=== PATIENT | female | born 1995 | race Caucasian/White ===

== ENCOUNTER 2017-05-15 04:08 | Emergency (ER) | payer MEDICAID ==
[2017-05-15 04:08] VITALS: BMI 36.6
--- NOTE | 2017-05-15 04:20 | ED PDOC ---
Arrival/HPI - General Chief Complaint: Chest Pain Time Seen by Provider: 05/15/17 04:16 Historian: Patient - History of Present Illness Narrative History of Present Illness (Text): 05/15/17 04:17 Karin Rosales is a 21 year old female who presents to the emergency department complaining of sudden onset pleuritic chest pain which began an hour prior to arrival. States that pain radiates to the back and is worsened with deep inspirations. Describes pain as a pressure sensation. Denies any shortness of breath. Denies any fever, chills, headache, dizziness, abdominal pain, nausea, vomiting, diarrhea, or any other complaints at this time. Time/Duration: Other (3 am today morning ) Symptom Onset: Sudden Activities at Onset: Light Context: Home Past Medical History - Provider Review Nursing Documentation Reviewed: Yes - Infectious Disease Hx of Infectious Diseases: None - Tetanus Immunization Tetanus Immunization: Unknown - Reproductive Menopause: No - Past Medical History Past Medical History: No Previous - Psychiatric Hx Psychophysiologic Disorder: No Hx Depression: No Hx Emotional Abuse: No Hx Physical Abuse: No Hx Substance Use: No - Past Surgical History Past Surgical History: No Previous - Anesthesia Hx Anesthesia: No - Suicidal Assessment Feels Threatened In Home Enviroment: No Family/Social History - Physician Review Nursing Documentation Reviewed: Yes Family/Social History: No Known Family HX Smoking Status: Never Smoked Hx Alcohol Use: No Hx Substance Use: No Hx Substance Use Treatment: No Allergies/Home Meds Allergies/Adverse Reactions: Allergies No Known Allergies Allergy (Verified 07/17/13 20:40) Physical Exam - Physical Exam Narrative Physical Exam (Text): Constitutional: Normal. absent: Fatigue, Weight Change, Fevers Eyes: Normal ENT: Normal Respiratory: Normal absent: SOB, Cough, Sputum Cardiovascular: Present: Chest pain absent:Palpitations, Syncope Gastrointestinal:Normal absent: Abdominal pain, Diarrhea, Nausea, Vomiting Genitourinary: Normal. absent: Dysuria, Frequency, Hematuria Musculoskeletal: Present: Back pain absent: Arthralgias, Neck Pain Skin: Normal Neurological: Normal absent: Focal Weakness Endocrine: Normal Hemo/Lymphatic: Normal Psychiatric: Normal - Physical exam Patient appears age appropriate, speaking full sentences without difficulty. - Systems Exam Head: Present: Atraumatic, Normocephalic Pupils: Present: PERRL Extraocular Muscles: Present: EOMI Conjunctiva: Present: Normal Mouth: Present: Moist Mucous Membranes Neck: Present: Normal Range of Motion. No: MIDLINE TENDERNESS, Paraspinal Tenderness Respiratory/Chest: Present: Clear to Auscultation, Good Air Exchange. No: Respiratory Distress, Accessory Muscle Use, Tachypnic Cardiovascular: Present: Regular Rate and Rhythm, Normal S1, S2, Peripheral Pulses Present. No: Murmurs Abdomen: Present: Normal Bowel Sounds, No: Tenderness, Peritoneal Signs, Rebound, Guarding, Distention Back: Present: Normal Inspection. No: Midline Tenderness, Paraspinal Tenderness Upper Extremity: Present: Normal Inspection. No: Cyanosis, Edema Lower Extremity: Present: Normal Inspection. No: Edema Neurological: Present: GCS=15, Speech Normal, cranial nerves II through XII fully intact with no cerebellar abnormality, neuro-sensory fully intact. No focal neurological deficits. Skin: Present: Warm, Dry, Normal Color. No: Rashes Lymphatic: Present: OX3, NI, NC Psychiatric: Present: Alert, Oriented x 3, Normal Insight, Normal Concentration Vital Signs Reviewed: Yes Vital Signs Temp Pulse Resp BP Pulse Ox 05/15/17 05:51 83 18 135/67 100 05/15/17 04:58 97.8 F 87 20 150/81 100 Temperature: Afebrile Blood Pressure: Normal Pulse: Regular Respiratory Rate: Normal Appearance: Positive for: Well-Appearing, Non-Toxic, Comfortable Pain Distress: None Mental Status: Positive for: Alert and Oriented X 3 Medical Decision Making ED Course and Treatment: 05/15/17 04:21 Impression: A 21 year old female who presents to the ed complaining of pleuritic chest pain radiating to the back. Differential Diagnosis included but are not limited to: PE vs. ACS vs. atypical chest pain Plan: - Labs, cardiac enzymes -- EKG -- CXR -- Toradol -- POC urine -- Reassess and disposition Progress Notes: 05/15/17 04:24 EKG interpreted by me: NSR @ [address] segment elevations. Normal interval. 05/15/17 05:55 Chest xray interpreted by ED physician shows no pneumothorax, no cardiomegaly, no infiltrates 05/15/17 06:10 Patient's HEART score low Patient's 1 set of troponins are negative Patient currently denies any complaints and states she feels well, no chest pain , no shortness of breath. Had an extensive discussion with patient about the limitations of emergency department workup. Pt was informed that although she is not having a heart attack, there is still a need for further cardiac workup which may include but not be limited to additional lab testing, echo, stress test, and/or a catheterezation. Pt was advised to stay in the hospital for more lab testing cardiology consultation. Pt however states that she feels well, her pain fully resolved she and wants to pursue further testing outpatient. Pt states she feels comfortable going home at this time and denies any complaints. Pt informed of risks and states she fully understands. Also aware to follow up with a sales closer and her PMD (Sudeep) within 48hrs. Pt states she understands to return to the ER right away for new or worsening symptoms or for inability to f/u with PMD or specialist as instructed. Patient states that she fully agrees with and understands discharge instructions. States that she agrees with the plan and disposition. Verbalized and repeated discharge instructions and plan. I have given the patient opportunity to ask any additional questions. - Lab Interpretations Lab Results: 05/15/17 04:20 05/15/17 04:20 Lab Results 05/15/17 04:20: PT 11.0, INR 1.02, APTT 28.9, D-Dimer, Quantitative 0.34 05/15/17 04:20: WBC 7.3, RBC 4.81, Hgb 10.1 L, Hct 31.3 L, MCV 65.1 L, MCH 21.0 L, MCHC 32.3, RDW 18.0 H, Plt Count 316, Gran % 44.1 L, Lymph % (Auto) 39.0 H, [place] % (Auto) 11.5 H, Eos % (Auto) 4.9, Baso % (Auto) 0.5, Gran # 3.20, Lymph # 2.8, [place]y # 0.8 H, Eos # 0.4, Baso # 0.04 05/15/17 04:20: Sodium 137, Potassium 3.4 L, Chloride 101, Carbon Dioxide 27, Anion Gap 12, BUN 11, Creatinine 0.6, Est GFR ( Amer) > 60, Est GFR (Non- Af Amer) > 60, Random Glucose 122 H, Calcium 8.4, Total Bilirubin 0.4, AST 32, ALT 31, Alkaline Phosphatase 74, Lactate Dehydrogenase 462, Total Creatine Kinase 90, Troponin I < 0.01, Total Protein 7.4, Albumin 3.8, Globulin 3.6, Albumin/Globulin Ratio 1.1 - RAD Interpretation Radiology Orders: 05/15/17 04:18 CHEST PORTABLE [RAD] Stat - Medication Orders Current Medication Orders: Discontinued Medications Ketorolac Tromethamine (Toradol) 30 mg IVP STAT STA Stop: 05/15/17 04:19 Last Admin: 05/15/17 04:39 Dose: 30 mg - Scribe Statement The provider has reviewed the documentation as recorded by the Purvi Aguilar Provider Attestation: All medical record entries made by the Garryibcarmel were at my direction and personally dictated by me. I have reviewed the chart and agree that the record accurately reflects my personal performance of the history, physical exam, medical decision making, and the department course for this patient. I have also personally directed, reviewed, and agree with the discharge instructions and disposition. Disposition/Present on Arrival - Present on Arrival Any Indicators Present on Arrival: No History of DVT/PE: No History of Uncontrolled Diabetes: No Urinary Catheter: No History of Decub. Ulcer: No History Surgical Site Infection Following: None - Disposition Have Diagnosis and Disposition been Completed?: Yes Diagnosis: Chest pain Disposition: HOME/ ROUTINE Disposition Time: 06:13 Patient Plan: Discharge Condition: GOOD Discharge Instructions (ExitCare): Chest Pain (ED) Additional Instructions: PLEASE RETURN TO THE EMERGENCY DEPARTMENT FOR NEW OR WORSENING SYMPTOMS. RETURN RIGHT AWAY IF YOU CANNOT FOLLOW UP WITH YOUR PRIMARY CARE DOCTOR, CLINIC, OR SPECIALIST IN 1-2 DAYS. Referrals: Sean Gomez MD [Primary Care Provider] - Follow up with primary Ashu Ring MD [Staff Provider] - Follow up with primary Desmond Singletary MD [Staff Provider] - Follow up with primary Forms: [employer] (Ecuadorean), WORK NOTE
[2017-05-15 04:41] LABS: BASO # 0.04 K/mm3 (0.0-2.0); BASO % 0.5 % (0.0-3.0); EOS # 0.4 (0.0-0.7); EOS % 4.9 % (1.5-5.0); GRAN % 44.1 % (50.0-68.0); HEMOGLOBIN 10.1 g/dL (12.0-16.0); LYMPH # 2.8 (1.2-3.4); MEAN CELL VOLUME 65.1 fl (80.0-105.0); MEAN CORPUSCULAR HGB CONC 32.3 g/dl (31.0-37.0); MONO # 0.8 (0.1-0.6); MONO % 11.5 % (1.0-6.0); PLATELET COUNT 316 10^3/uL (120.0-450.0); RBC 4.81 10^6/uL (3.5-6.1); WHITE BLOOD COUNT 7.3 10^3/ul (4.5-11.0)
[2017-05-15 04:45] LABS: ALB/GLOB RATIO 1.1 (1.1-1.8); ALBUMIN 3.8 g/dL (3.0-4.8); ALT/SGPT 31 U/L (7-56); AST/SGOT 32 U/L (15-39); BLOOD UREA NITROGEN 11 mg/dL (7-21); CALCIUM 8.4 mg/dL (8.4-10.5); GFR AFRICAN-AMERICAN > 60; GFR NON-AFRICAN AMERICAN > 60
[2017-05-15 04:59] VITALS: TEMP 97.8; O2SAT 100
[2017-05-15 05:02] LABS: TROPONIN I < 0.01 ng/mL
[2017-05-15 05:05] LABS: INR 1.02 (0.93-1.08); PARTIAL THROMBOPLASTIN TIME 28.9 Seconds (23.7-30.8)
[2017-05-15 05:14] LABS: D DIMER 0.34 mg/L FEU (0-0.50)
[2017-05-15 05:53] VITALS: BP 135/67; PULSE 83; RESP 18
--- NOTE | 2017-05-15 09:07 | RAD ---
HISTORY: cp COMPARISON: No prior. FINDINGS: LUNGS: No active pulmonary disease. PLEURA: No significant pleural effusion identified, no pneumothorax apparent. CARDIOVASCULAR: Normal. OSSEOUS STRUCTURES: No significant abnormalities. VISUALIZED UPPER ABDOMEN: Normal. OTHER FINDINGS: None. IMPRESSION: No active disease.
--- NOTE | 2017-05-15 23:44 | CARD ---
APPROVED REPORT EKG Measurement Heart [id number] <Conclusion> Normal sinus rhythm Normal ECG
== END 2017-05-15 06:38 | disposition home or self-care (01) ==
LOC: ED 04:08
DX: R07.9 Chest pain, unspecified (principal)
CPT/HCPCS: 71010; 80053; 82550; 83615; 84484; 85025; 85378; 85610; 85730; 93005; 96374; 99284; J1885